=== PATIENT | male | born 1975 | race Caucasian/White ===

== ENCOUNTER → 2017-09-20 10:11 | Outpatient (CLI) | payer BC, SELFPAY | PROVIDERS: Visit Provider Nurse Practitioner Family | DX: Z02.4 Encounter for examination for driving license (principal) ==

== ENCOUNTER 2019-09-14 19:33 | Emergency (ER) | payer BC, SELFPAY ==
[2019-09-14 19:47] VITALS: BP 121/84; PULSE 72; RESP 20; TEMP 36.8; O2SAT 97; BMI 27.8
--- NOTE | 2019-09-14 20:01 | HMH.EDUTC ---
[facility] [place] Clinical Impression: Cutaneous abscess of face Disposition: Home, Self-Care Condition on Discharge: Good Instructions: Boil Additional Instructions: Keep the affected area clean and dry. Follow up with your regular doctor. Take the antibiotics as directed and apply the topical antibiotics as directed. Apply warm wet compresses to the affected area three or four times per day. GO TO THE ER FOR ANY WORSENING SYMPTOMS Prescriptions: Sulfamethoxazole/Trimethoprim [Bactrim DS tablet] 1 each PO BID 10 Days #20 tab Transmission Status: Received by [facility] #[id number] Mupirocin [Bactroban 2% Ointment 22gm tube] 1 applicatio TP TID 7 Days #1 tube Transmission Status: Received by [facility] #[id number] cephALEXin [Keflex 500mg Cap] 500 mg PO Q6H 10 Days #40 cap Transmission Status: Received by [facility] #[id number] Referrals: PCP,No [Primary Care Provider] - Time of Disposition: 20:06 Medical Decision Making - Medical Records Medical records reviewed: No: I reviewed the patient's medical records. - Bulmaro Inquiry Pt receiving controlled substance: No Vital Signs: 09/14/19 19:47 09/14/19 20:09 Temperature 98.3 F 98.3 F Temperature Source Oral Pulse Rate 72 Pulse Rate [Right Brachial] 72 Respiratory Rate 20 20 Blood Pressure 121/84 Blood Pressure [Left Arm] 121/84 Blood Pressure Mean [Left Arm] 96 Blood Pressure Source [Left Arm] Automatic Cuff Blood Pressure Position [Left Arm] Sitting 02 Sat by Pulse Oximetry 97 Oxygen Delivery Method Room Air Orders (Tests/Meds): ED MEDICATIONS Discontinued Medications Generic Name Dose Route Start Last Admin Trade Name Sergioq PRN Reason Stop Dose Admin Ceftriaxone Sodium 1 gm 09/14/19 20:07 09/14/19 20:08 Rocephin 1gm Vial IM 09/14/19 20:08 1 gm ONCE ONE Administration Protocol Lidocaine HCl 0 ml 09/14/19 20:07 09/14/19 20:08 Lidocaine 1% 10ml Mdv IM 09/14/19 20:08 2.1 ml ONCE ONE Administration [facility] [place] - General Stated complaint: Sore on nose Time Seen by Provider: 09/14/19 20:01 Mode of Arrival: Ambulatory Source of Information: Patient Limitations: No Limitations Description of Symptoms (Recalled from Triage Doc. by RN): PATIENT C/O REDNESS, SWELLING AND TENDER TO OUTTER NOSE X 3 DAYS. HE STATES THE SWELLING GETS WORSE AT NIGHT AND GOES DOWN DURING THE DAY. HE REPORTS YESTERDAY THE SWELLING HAD SPREAD TO HIS EYE AREA, BUT WAS BETTER TODAY. DENIES ANY DIFFICULTY BREATHING HEENT Symptoms (Recalled from RN notes): Yes Resp Symptoms (Recalled from RN notes): No Skin Symptoms (Recalled from RN notes): No MS Symptoms (Recalled from RN notes): No Functional Status (Recalled from RN notes): WNL - History of Present Illness Provider Complaint: He c/o redness, pain and swelling of his nose and left facial cheek area. - Related Data Previous Rx's Medication Instructions Recorded Mupirocin [Bactroban 2% Ointment 1 applicatio TP TID 7 Days #1 tube 09/14/19 22gm tube] Sulfamethoxazole/Trimethoprim 1 each PO BID 10 Days #20 tab 09/14/19 [Bactrim DS tablet] cephALEXin [Keflex 500mg Cap] 500 mg PO Q6H 10 Days #40 cap 09/14/19 Allergies Allergy/AdvReac Type Severity Reaction Status Date / Time bacitracin [From Polysporin] Allergy Verified 09/25/18 14:13 polymyxin B [From Polysporin] Allergy Verified 09/25/18 14:13 - Worker's Comp Is this a Worker's Comp case?: No H History - Hepatitis A Screen Drug use history?: No High risk sexual behaviors?: No History of sexually transmitted infection?: No Currently employed?: No Childcare worker?: No Do you have indoor plumbing?: Yes Do you have electricity?: Yes Attestation statement:: This patient has been screened for Hepatitis A risk factors. I have reviewed the patient's past medical history: Yes Other Surgeries: Yes: No Previous Surgery - Social History Smoking Status: Form
[2019-09-14 20:09] VITALS: BP 121/84; PULSE 72; RESP 20; TEMP 36.8; O2SAT 97
== END 2019-09-14 20:12 | disposition home or self-care (01) ==
PROVIDERS: Emergency Provider Nurse Practitioner Family
DX: L02.01 Cutaneous abscess of face (principal); Z87.891 Personal history of nicotine dependence; Z88.8 Allergy status to other drugs, medicaments and biological substances
CPT/HCPCS: 96372; 99201

== ENCOUNTER → 2022-03-21 10:02 | Outpatient (CLI) | payer BC, SELFPAY ==
--- NOTE | 2022-03-21 | ECG_ITS ---
APPROVED REPORT Exam: Resting ECG HR:66 bpm ECG Measurements Heart Rate 66 AXES NV 136 P 50 QRSd 97 QRS 94 QT 367 T -7 QTc 381 Conclusion SINUS RHYTHM WITH SINUS ARRHYTHMIA BORDERLINE RIGHT AXIS DEVIATION [QRS AXIS > 90] OTHERWISE NORMAL EKG Electronically signed by : Ulisses Myers MD 03/21/2022 13:42:48
== END ==
PROVIDERS: PCP Internal Medicine; Visit Provider Internal Medicine
DX: R07.9 Chest pain, unspecified (principal)
CPT/HCPCS: 93005

== ENCOUNTER → 2022-03-28 13:49 | Outpatient (CLI) | payer BC, SELFPAY ==
--- NOTE | 2022-03-28 | CA_ITS ---
APPROVED REPORT Exam: Exercise Treadmill Technologist: Jil Carrero Ht: 6 ft 0 in Wt: 206 lbs BSA: 2.16 m2 HR: 60 bpm BP: 129/88 mmHg Indications: Chest pain Stress Test Details Test: Mckenna HR Resting HR: 68 bpm Max Heart Rate (APMHR): 174.031031 bpm Max HR Achieved: 182 bpm Target HR (85% APMHR): 147.374652 bpm % of APMHR: 104.60 Recovery HR: 113 bpm BP Resting BP: 129.0/88.0 mmHg Max BP: 160.0/82.0 mmHg Recovery BP: 156.0/92.0 mmHg ECG Resting ECG: Normal sinus rhythm, inferior T wave inversion and lateral ST scooping. Clinical Reason for Termination: Fatigue Dyspnea Exercise duration: 09:00 min Highest Stage Achieved: Exercise capacity: 10.1 METs Stress ECG Conclusion Non-diagnostic test. Patient exercised on a mckenna protocol for 9 minutes to peak heart rate 182 bpm (target heart rate 148 bpm) without chest pain. Baseline EKG shows normal sinus rhythm with inferior T wave inversion and lateral ST segment depression/scooping that precludes diagnostic interpretation. Rare PVC and atrial runs/couplets noted. Total METS 10.1 with peak blood pressure 160/82 mmHg. No imaging ordered. Test Summary REST . . . . . . . Sitting REST . . . . . . . Standing REST 03:28 0.0 0.0 68 . 129/ 88 . . Stage 1 01:00 10.0 1.7 106 . . . . Stage 1 02:00 10.0 1.7 115 . . . . Stage 1 03:00 10.0 1.7 117 . 144/ 76 . . Stage 2 01:00 12.0 2.5 136 . . . . Stage 2 02:00 12.0 2.5 150 . . . . Stage 2 03:00 12.0 2.5 158 . 148/ 80 . . Stage 3 01:00 14.0 3.4 170 . . . . Stage 3 02:00 14.0 3.4 176 . . . . Stage 3 03:00 14.0 3.4 181 . 160/ 82 . Stop exercise at 09:00 RECOVERY 01:00 0.0 0.0 162 . . . . RECOVERY 02:00 0.0 0.0 139 . . . . RECOVERY 03:00 0.0 0.0 122 . . . . RECOVERY 04:00 0.0 0.0 115 . . . . RECOVERY 05:00 0.0 0.0 112 . . . . RECOVERY 06:00 0.0 0.0 109 . 156/ 92 . . RECOVERY 06:33 0.0 0.0 112 . 156/ 92 . . Electronically signed by : Ulisses Myers MD 03/30/2022 17:09:56
== END ==
PROVIDERS: PCP Internal Medicine; Visit Provider Internal Medicine
DX: R07.9 Chest pain, unspecified (principal)
CPT/HCPCS: 93017

== ENCOUNTER → 2022-04-18 10:35 | Outpatient (CLI) | payer BC, SELFPAY ==
[2022-04-18 11:15] LABS: Basophils # 0.1 K/mm3 (0-0.2); Basophils % 0.6 % (0.1-2.0); Eosinophils # 0.1 K/mm3 (0.0-0.4); Eosinophils % 1.1 % (0.1-12.0); Hematocrit 44.4 % (42.0-52.0); Hemoglobin 14.7 g/dL (14.1-18.0); Lymphocytes % 20.3 % (10-50); Mean Corpuscular HGB Conc 33.1 g/dL (31.8-35.4); Mean Corpuscular Hemoglobin 30.6 pg (27.0-31.2); Mean Corpuscular Volume 92.5 fl (80-94); Mean Platelet Volume 7.8 fl (7.4-10.4); Monocytes # 0.5 K/mm3 (0.1-1.0); Monocytes % 4.9 % (1.7-9.3); Platelet Count 225 K/mm3 (142-424); Red Cell Distribution Width 12.9 % (11.5-17.5); White Blood Count 9.6 K/mm3 (4.8-10.8)
[2022-04-18 11:47] LABS: Alanine Aminotransferase 18 U/L (12-78); Albumin Level 4.4 g/dl (3.5-5.0); Albumin/Globulin Ratio 1.8 (1.1-1.8); Alkaline Phosphatase 67 U/L (38-126); Anion Gap 4.4 mEq/L (5-15); Aspartate Amino Transferase 27 U/L (17-59); Bilirubin,Total 0.6 mg/dl (0.2-1.3); Blood Urea Nitrogen 12 mg/dl (9-20); Calcium 9.2 mg/dl (8.4-10.2); Carbon Dioxide 31 mmol/L (22.0-30.0); Chloride 108 mmol/L (98-107); Chol/HDL Ratio 4.8 (1-3.5); Cholesterol 198 mg/dl (140-200); Estimated Glomerular Filt Rate 91 ml/min (>60); GFR (African American) 110 ML/MIN (>60); Globulin 2.5 g/dL (1.3-3.2); Glucose 94 mg/dl (74-100); HDL Cholesterol 41 mg/dl (40-60); Potassium 4.4 mmoL/L (3.5-5.1); Sodium 139 mmol/L (136-145); Total Protein,Serum 6.9 g/dl (6.3-8.2); Triglycerides 69 mg/dl (30-150); VLDL Cholesterol 14 mg/dL (0-40)
[2022-04-18 11:58] LABS: Direct LDL Cholesterol 129.69 mg/dL (100-129)
== END ==
PROVIDERS: PCP Internal Medicine; Visit Provider Internal Medicine
DX: R07.9 Chest pain, unspecified (principal); R94.39 Abnormal result of other cardiovascular function study; K21.9 Gastro-esophageal reflux disease without esophagitis
CPT/HCPCS: 36415; 80053; 80061; 85025

== ENCOUNTER → 2022-04-20 12:04 | Outpatient (CLI) | payer BC, SELFPAY ==
--- NOTE | 2022-04-20 | CA_ITS ---
APPROVED REPORT Exam: Exercise Treadmill Technologist: Marely Wooten, Ht: 6 ft 0 in Wt: 215 lbs BSA: 2.20 m2 HR: 63 bpm BP: 119/87 mmHg Stress Test Details Test: Benjamin HR Resting HR: 64 bpm Max Heart Rate (APMHR): 174.962117 bpm Max HR Achieved: 174 bpm Target HR (85% APMHR): 147.629265 bpm % of APMHR: 100.00 Recovery HR: 104 bpm BP Resting BP: 124.0/83.0 mmHg Max BP: 167.0/92.0 mmHg Recovery BP: 146.0/88.0 mmHg ECG Resting ECG: NSR, NSSTTRS abnormalities Inf. LAT Clinical Reason for Termination: Dyspnea Exercise duration: 10:00 min Highest Stage Achieved: Exercise capacity: 12.8 METs Stress ECG Conclusion 10 mins Max HR: 174 % of PM: 118 METs: 12.8 Test stopped due to: Dyspnea Symptoms: No CP Arrhythmias/Ectopy: none ST-T Changes: Baseline STT abnormalities exacerbated during stress. Conclusion: Abnormal, Non diagnostic EKG due to baseline abnormalities. Good exercise tolerance. Test Summary REST . . . . . . . Sitting REST . . . . . . . Standing REST 08:31 0.0 1.2 64 . 124/ 83 . . Stage 1 01:00 10.0 1.7 97 . . . . Stage 1 02:00 10.0 1.7 101 . . . . Stage 1 03:00 10.0 1.7 105 . 122/ 78 . . Stage 2 01:00 12.0 2.5 119 . . . . Stage 2 02:00 12.0 2.5 128 . . . . Stage 2 03:00 12.0 2.5 136 . 150/ 84 . . Stage 3 01:00 14.0 3.4 149 . . . . Stage 3 02:00 14.0 3.4 159 . . . . Stage 3 03:00 14.0 3.4 166 . 160/ 82 . . Stage 4 01:00 16.0 4.2 174 . . . Stop exercise at 10:00 RECOVERY 01:00 0.0 0.0 152 . . . . RECOVERY 02:00 0.0 0.0 115 . . . . RECOVERY 03:00 0.0 0.0 102 . 167/ 92 . . RECOVERY 04:00 0.0 0.0 101 . 167/ 92 . . RECOVERY 04:55 0.0 0.0 103 . 146/ 88 . . Electronically signed by : Barry Freeman MD 04/20/2022 18:30:02
--- NOTE | 2022-04-20 12:15 | NM_ITS ---
APPROVED REPORT Exam: Nuclear Stress Test Indication: Chest pain, SOB, Family history Patient Location: Outpatient Stress Tech: Marely Raphael [place] Tech:Viry Arreola, ARRT, RT (R)(N) Ht: 6 ft 0 in Wt: 215 lbs HR: 64 bpm BP: 124/83 mmHg BSA: 2.20 m2 TID: 1.11 History: Chest pain, SOB, Family history Procedure: Patient exercised on Benjamin protocol 10:00 minutes and sec, resting heart rate 64 bpm, resting blood pressure 124/83 mmHg, with exercise maximum heart rate achived was 174 bpm which is 100 % of the maximum predicted heart rate and blood pressure was 167/92 mmHg. Test was stopped due to SOB. Patient denied any complaint of chest pain. Patient has Good exercise capacity, achieved 12.8 METs of workload on treadmill, the blood pressure response to exercise was Adequate. Electrocardiogram Resting electrocardiogram shows sinus rhythm nonspecific ST-T changes, with exercise there is less than 1.[address] segment depression noted from the baseline EKG. The EKG portion of the exercise Myoview is nondiagnostic due to baseline abnormal EKG. Cardiac Stress and Resting SPECT Images: Cardiac Stress and Resting SPECT images were obtained using technetium 99m Myoview 32.2 mCi stress and 9.95 mCi at rest. Gated SPECT analysis of segmental wall motion and calculation of the ejection fraction also done. Prone images were also obtained. Cardiac prone images show uniform myocardial activity without segmental perfusion abnormality, computer derived ejection fraction 50% with no regional wall motion abnormality, right ventricle is normal size and contractility. Conclusion: 1. The EKG portion of the exercise Myoview is nondiagnostic due to baseline abnormal EKG, patient has good exercise capacity achieved 12.8 METs of workload on treadmill, the blood pressure response to exercise was adequate, there was no exercise-induced chest discomfort. 2. No scintigraphic evidence of reversible ischemia seen, computer derived ejection fraction is 50% with no regional wall motion abnormality, right ventricle is normal size and contractility. 3. Normal exercise Myoview study. Electronically signed by : Barry Freeman MD 04/20/2022 18:37:39
--- NOTE | 2022-04-20 13:44 | HMH.ITSHM ---
Current Home Medications as stated by this patient Job García or [employer]eleservices representative. [][facility] [facility]
== END ==
PROVIDERS: PCP Internal Medicine; Visit Provider Internal Medicine
DX: R07.9 Chest pain, unspecified (principal); I25.5 Ischemic cardiomyopathy; R06.09 Other forms of dyspnea; Z82.49 Family history of ischemic heart disease and other diseases of the circulatory system
CPT/HCPCS: 78452; 93017; A9502

== ENCOUNTER 2022-05-29 12:42 | Emergency (ER) | payer BC, SELFPAY ==
[2022-05-29 12:55] VITALS: BP 126/94; PULSE 65; RESP 22; TEMP 37.4; O2SAT 96; BMI 30.1
[2022-05-29 13:38] LABS: UTC Strep Screen (Rapid) Negative (Negative)
--- NOTE | 2022-05-29 13:43 | EXP.UTC ---
Discharge Plan Disposition Patient Disposition: Home, Self-Care Condition: Good Prescriptions Prescriptions: New azithromycin [Zithromax Z-Fabio] 250 mg tablet See Rx Instructions .ROUTE .COMPLEX 5 Days Qty: 6 0RF Rx Instructions: For 250 mg dose pack: take 500 mg today (day 1), then 250 mg for 4 days (days 2-5) benzonatate 100 mg capsule 100 mg PO TID PRN (Reason: cough) Qty: 30 0RF methylprednisolone [Medrol (Fabio)] 4 mg tablets,dose pack See Rx Instructions .Route .COMPLEX 6 Days Qty: 21 0RF Rx Instructions: taper pack; No Action omeprazole 20 mg capsule,delayed release(DR/EC) 20 mg PO DAILY Label Comments: TAKE 1 CAPSULE BY MOUTH IN THE MORNING FOR GERD Referrals Follow up/Referrals: Ulisses Myers MD [Primary Care Provider] - See instructions Activity Restrictions/Add. Instructions Additional Instructions/Restrictions: *Monitor Temp, Over the counter Motrin or Tylenol as directed/as needed Tylenol every 4 hours and Motrin every 6 hours (as long as your family doctor has told you that you can take it) for fever or pain. and straight to ER if unable to lower temp less than 101.0 after medication given *Warm salt water gargles may help to soothe the throat *Throat Lozenges? *Warm fluids like tea with honey may help to soothe the throat? *Sleep elevated *Humidifier/Vaporizer Your throat swab was sent for culture. Those results are typically sent to your primary care. Be sure to follow up in 2-3 days with your family doctor/primary care physician if no improvement so they can review those result and treat if necessary. If you don?t have a primary care doctor, I recommend you get one but in the mean time, you will have to return to a walk in clinic Follow up IMMEDIATELY for new or worsening symptoms or no Noticeable improvement over the next 48-72 hours. 911 for difficulty breathing or swallowing Clinical Impressions Clinical Impression: Sinusitis Instructions Patient Instructions: DI for Sinusitis, Sinusitis, Sore Throat Discharge ED Provider: Karon Do [facility] General Stated complaint: sore throat, cough, bilateral ear pain, sinus pres Mode of Arrival: Ambulatory Source of Information: Patient Limitations: No Limitations Time Seen by Provider: 05/29/22 13:43 Description of Symptoms (Recalled from Triage Doc. by RN): PATIENT C/O COUGH, SORE THROAT, CONGESTION AND FATIGUE SINCE MONDAY HEENT Symptoms (Recalled from RN notes): Yes Resp Symptoms (Recalled from RN notes): Yes Skin Symptoms (Recalled from RN notes): No MS Symptoms (Recalled from RN notes): No Functional Status (Recalled from RN notes): WNL History of Present Illness Provider Complaint: Patient states he has been having sinus pain and pressure, sore throat, drainage in the back of his throat, cough and congestion States that today the pressure was worse and his throat felt more scratchy so he came in Related Data Home Medications Medication Instructions Recorded Confirmed omeprazole 20 mg capsule,delayed 20 mg PO DAILY GERD 05/29/22 05/29/22 release Previous Rx's Medication Instructions Recorded azithromycin 250 mg tablet See Rx Instructions PO .COMPLEX 5 05/29/22 (Zithromax Z-Fabio) days #6 tabs benzonatate 100 mg capsule 100 mg PO TID PRN cough #30 caps 05/29/22 methylprednisolone 4 mg tablets in See Rx Instructions .Route 05/29/22 a dose pack (Medrol (Fabio)) .COMPLEX 6 days #21 tabs Allergies Allergy/AdvReac Type Severity Reaction Status Date / Time bacitracin [From Polysporin] Allergy Verified 09/29/20 13:59 polymyxin B [From Polysporin] Allergy Verified 09/29/20 13:59 Worker's Comp Is this a Worker's Comp case?: No [facility] Disclaimer: The information contained in this section may have been updated after the patient was seen, as this information can be updated by other users. Social History Smoking Status: Former smoker alcohol intake
[2022-05-29 13:52] VITALS: BP 126/94; PULSE 65; RESP 22; TEMP 37.4; O2SAT 96
== END 2022-05-29 13:55 | disposition home or self-care (01) ==
PROVIDERS: Emergency Provider Nurse Practitioner; PCP Internal Medicine
DX: J01.90 Acute sinusitis, unspecified (principal); R05.1 Acute cough
CPT/HCPCS: 87880; 99212; 99214; G0463

== ENCOUNTER 2023-04-11 11:54 | Outpatient (POV) | payer BC, SELFPAY | END 2023-04-11 23:59 | disposition home or self-care (01) | LOC: SC 11:55 | PROVIDERS: PCP Internal Medicine; Visit Provider Dermatology | DX: Z00.00 Encounter for general adult medical examination without abnormal findings (principal) ==

== ENCOUNTER 2023-04-25 09:31 | Day surgery (SDC) | payer BC, SELFPAY ==
[2023-04-21 09:38] VITALS: BMI 29.1
[2023-04-25] MEDS: LACTATED RINGERS 1000ML 1,000 ML 25 ML IV (09:41)
[2023-04-25 09:43] VITALS: BP 125/88; PULSE 68; RESP 18; TEMP 36.1; O2SAT 95
--- NOTE | 2023-04-25 09:49 | P.PCN_ITS ---
Procedure: Date: 04/25/23 Patient Date of :: 1975 Procedure Performed:: Colonoscopy Indications:: Screening Performing Provider:: Pedrito Rodriguez MD Referring Provider:: . Sedation:: Monitored anesthesia care Procedure:: After informed consent was obtained the patient was taken to the endoscopy suite. Sedation ensued after the patient was transferred to the left lateral decubitus position. Pulse, blood pressure, and oxygen saturation were monitored throughout the procedure. Digital rectal exam revealed no significant abnormality. The colonoscope was placed in position. The entire colon was eval uated. The colonoscope was carefully removed and the patient was transferred to recovery in stable condition. Please see findings and specimens below for detail. Findings:: Bowel preparation fair Moderate tortuosity Moderate spasticity/lack of relaxation Hemorrhoidal cushions Specimens:: None Recommendations:: Repeat colonoscopy in 3-5 years secondary to tortuosity and spasticity/lack of relaxation. If repeat colonoscopy reveals no abnormality, timing of future colonoscopies will likely be extended. Complications:: No immediate Estimated blood obtained (mL): 0 Colonoscopy Component Colonoscopy Component Was a colonoscopy performed during today's procedure?: Yes Recommended follow up colonoscopy of at least 10 years?: No If no, follow up colonoscopy recommended in ___ years?: (See above) Reason for not recommending >/= 10 yr follow-up interval?: (See above)
--- NOTE | 2023-04-25 09:51 | EXP.ANES.CKL ---
[facility] Disclaimer: The information contained in this section may have been updated after the patient was seen, as this information can be updated by other users. Medical History No significant past medical history Family History Other No significant family history Social History Smoking Status: Former smoker alcohol intake: current substance use type: denies use current occupational status: employed and other Travel in the last 8 weeks: Inside the [place] household members: family housing: house [facility] Anesthesia Checklist Patient Identification Patient Identification: Arm Band and Verbal (Name & ) Structural Data Admitted From: Home Planned Operative Procedure/s: Colonoscopy Consent for Planned Operative Procedure(s) Verified: Yes NPO Status Verified Time NPO: 00:00 Airway Assessment Mallampati Score:: Class II C-Spine Mobility Assessed: Yes TMJ Mobility Assessed: Yes Dentition: Good Dentition Neurological Assessment Level of Consciousness: Awake Hx Seizures: No Numbness or tingling in extremities: No Anesthesia Plan Anesthesia Risk discussed: Yes Anesthesia Plan: Verified ASA Class: I Anesthesia Type: MAC
[2023-04-25 09:55] VITALS: O2SAT 94
[2023-04-25 10:20] VITALS: BP 94/64; PULSE 67; RESP 14; TEMP 36.1; O2SAT 94
--- NOTE | 2023-04-25 10:28 | SUR.PHASEII ---
1020: Pt arrived to postop area. RN and PROPERTIES SUPERVISOR present. Oral airway in place at this time. Pt is maintaining sats on room air.
[2023-04-25 10:30] VITALS: BP 95/64; PULSE 69; RESP 14; O2SAT 93
[2023-04-25 10:40] VITALS: BP 102/67; PULSE 75; RESP 17; O2SAT 96
== END 2023-04-25 10:50 | disposition home or self-care (01) ==
PROVIDERS: PCP Internal Medicine; Visit Provider Surgery
PROC: 0DJD8ZZ Inspection of Lower Intestinal Tract, Via Natural or Artificial Opening Endoscopic (ICD-10-PCS; CPT 45378; principal; 2023-04-25 10:30)
DX: Z12.11 Encounter for screening for malignant neoplasm of colon (principal); K64.8 Other hemorrhoids
CPT/HCPCS: 45378; J2704

== ENCOUNTER 2023-06-20 08:53 | Emergency (ER) | payer BC, SELFPAY ==
[2023-06-20 09:20] VITALS: BP 141/87; PULSE 89; RESP 18; TEMP 37.1; O2SAT 99; BMI 30.4
[2023-06-20 09:27] LABS: UTC Influenza A Antigen Negative (Negative); UTC Influenza B Antigen Negative (Negative); UTC Strep Screen (Rapid) Negative (Negative)
--- NOTE | 2023-06-20 09:35 | EXP.UTC ---
Discharge Plan Disposition Patient Disposition: Home, Self-Care Condition: Good Prescriptions Prescriptions: New azithromycin [Zithromax Z-Fabio] 250 mg tablet See Rx Instructions .ROUTE .COMPLEX 5 Days Qty: 6 0RF Rx Instructions: For 250 mg dose pack: take 500 mg today (day 1), then 250 mg for 4 days (days 2-5) benzonatate 100 mg capsule 100 mg PO TID PRN (Reason: cough) Qty: 30 0RF methylprednisolone [Medrol (Fabio)] 4 mg tablets,dose pack See Rx Instructions .Route .COMPLEX 6 Days Qty: 21 0RF Rx Instructions: taper pack; No Action famotidine 20 mg tablet 20 mg PO DAILY Patient Comments: TAKE 1 TABLET BY MOUTH TWICE DAILY BEFORE MEAL(S) Referrals Follow up/Referrals: Ulisses Myers MD [Primary Care Provider] - See instructions Activity Restrictions/Add. Instructions Additional Instructions/Restrictions: *Monitor Temp, Over the counter Motrin or Tylenol as directed/as needed Tylenol every 4 hours and Motrin every 6 hours (as long as your family doctor has told you that you can take it) for fever or pain. and straight to ER if unable to lower temp less than 101.0 after medication given *Warm salt water gargles may help to soothe the throat *Throat Lozenges? *Warm fluids like tea with honey may help to soothe the throat? *Sleep elevated *Humidifier/Vaporizer *Your throat swab was sent for culture. Those results are typically sent to your primary care. Be sure to follow up in 2-3 days with your family doctor/primary care physician if no improvement so they can review those result and treat if necessary. If you don?t have a primary care doctor, I recommend you get one but in the mean time, you will have to return to a walk in clinic Follow up IMMEDIATELY for new or worsening symptoms or no Noticeable improvement over the next 48-72 hours. 911 for difficulty breathing or swallowing Clinical Impressions Clinical Impression: Pharyngitis Instructions Patient Instructions: Sore Throat, DI for Sinusitis Discharge ED Provider: Karon Do [facility] [place] HPI General Stated complaint: fever, cough, sore throat Mode of Arrival: Ambulatory Source of Information: Patient Limitations: No Limitations Time Seen by Provider: 06/20/23 09:35 Description of Symptoms (Recalled from Triage Doc. by RN): Pt's symptoms are cough, sore throat, congestion, and fever. 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 HEENT Symptoms (Recalled from RN notes): Yes Resp Symptoms (Recalled from RN notes): No Skin Symptoms (Recalled from RN notes): No MS Symptoms (Recalled from RN notes): No Functional Status (Recalled from RN notes): n/a History of Present Illness Provider Complaint: Patient states that he has been having sore throat, sinus congestion and pressure, fever, and over all not feeling well since last week States that his cough is getting worse but not coughing anything up so today when he was still not feeling any better he came in Related Data Home Medications Medication Instructions Recorded Confirmed famotidine 20 mg tablet 20 mg PO DAILY 04/25/23 04/25/23 Previous Rx's Medication Instructions Recorded azithromycin 250 mg tablet See Rx Instructions PO .COMPLEX 5 06/20/23 (Zithromax Z-Fabio) days #6 tabs benzonatate 100 mg capsule 100 mg PO TID PRN cough #30 caps 06/20/23 methylprednisolone 4 mg tablets in See Rx Instructions .Route 06/20/23 a dose pack (Medrol (Fabio)) .COMPLEX 6 days #21 tabs Allergies Allergy/AdvReac Type Severity Reaction Status Date / Time bacitracin [From Polysporin] Allergy Verified 06/20/23 09:30 polymyxin B [From Polysporin] Allergy Verified 06/20/23 09:30 Worker's Comp Is this a Worker's Comp case?: No [facility] Disclaimer: The information contained in this section may have been updated after the patient was seen, as this information can be updated by other users. Medical History No significant past medical history Family History Other No significant family history Social History Smoking Status: Former smoker alcohol intake: current substance use type: denies use current occupational status: employed and other Travel in the last 8 weeks: [place] the [place] household members: family housing: house ROS Obtained: Yes All systems reviewed & no additional complaints except as documented and Yes Systems reviewed as appropriate & no additional complaints except as documented Constitutional Constitutional: Reports system reviewed and no additional complaints, except as documented, Reports as per HPI, Reports fever(s) and Reports headache(s) ENT Ears, Nose, Mouth, and Throat: Reports system reviewed and no additional complaints, except as documented, Reports as per HPI, Reports headache(s), Reports sinus pain, Reports sinus pressure and Reports sore throat Cardiovascular Cardiovascular: Reports system reviewed and no additional complaints, except as documented and Reports as per HPI Respiratory Respiratory: Reports system reviewed and no additional complaints, except as documented, Reports as per HPI, Denies shortness of breath and Reports cough Neurologic Neurologic: Reports headache(s) Physical Exam General General appearance: alert and in no apparent distress ENT ENT exam: Present mucous membranes moist Expanded ENT Exam Nose exam: Present sinus tenderness Throat exam: Present other (Pharyngeal erythema noted with PND) Respiratory Respiratory exam: Present normal lung sounds bilaterally; Absent respiratory distress or wheezes Cardiovascular Cardiovascular exam: Present regular rate, normal rhythm and normal heart sounds Neurological Exam Neurological exam: Present alert, oriented X3 and normal gait Medical Decision Making Bulmaro Inquiry Pt receiving controlled substance: No Bulmaro was queried for this patient: No Vital Signs: 06/20/23 09:20 Temperature 98.7 F Temperature Source Oral Pulse Rate [Right Radial] 89 Respiratory Rate 18 Blood Pressure [Right Arm] 141/87 H Blood Pressure Mean [Right Arm] 105 Blood Pressure Source [Right Arm] Automatic Cuff Blood Pressure Position [Right Arm] Sitting 02 Sat by Pulse Oximetry 99 Oxygen Delivery Method Room Air Lab Data Lab results reviewed: Yes I reviewed the patient's lab results. Lab Results 06/20/23 09:26: Influenza Type A Ag Negative, Influenza Type B Ag Negative, Strep Scn Rapid Clinic Negative Orders (Tests/Meds): ORDERS Category Date Time Status Strep Screen Confirmation Stat Micro 06/20/23 09:26 Received
[2023-06-20 09:50] VITALS: BP 141/87; PULSE 89; RESP 18; TEMP 37.1; O2SAT 99
== END 2023-06-20 09:55 | disposition home or self-care (01) ==
PROVIDERS: Emergency Provider Nurse Practitioner; PCP Internal Medicine
DX: J02.9 Acute pharyngitis, unspecified (principal); R50.9 Fever, unspecified; R05.9 Cough, unspecified; R09.81 Nasal congestion
CPT/HCPCS: 87804; 87880; 99212; 99214; G0463

== ENCOUNTER 2025-01-27 09:33 | Outpatient (CLI) | payer BC, SELFPAY ==
--- NOTE | 2025-01-27 09:35 | XR_ITS ---
FINAL REPORT CLINICAL HISTORY: chest congestion x 3 weeks COMPARISON: None FINDINGS: PA and lateral views of the chest are obtained. There is no prior exam for comparison. The cardiac and mediastinal silhouettes are within normal limits. Mild bronchial wall thickening is present, slightly asymmetric to the left, possibly secondary to bronchitis. No confluent infiltrates are identified. There is no pleural effusion, pneumothorax, or acute osseous abnormality. IMPRESSION: Mild bronchial wall thickening, slightly more prominent on the left, possibly secondary to bronchitis. Reviewed, Interpreted and Dictated by Amara Poon MD Transcribed by July West Authenticated and . [facility]
--- OUTSIDE RECORDS SUMMARY | 2025-01-27 09:36 | XMS_ITS | Patient Health Record ---
Author Organization [facility] Address [address] [facility] [address] [place] [id number] Care Team Providers Care Switch Inspector Name Role Phone Enzo Whitlock Unavailable [phone] Allergies Allergen (clinical drug ingredient) Drug/Non Drug Allergy documented on EMR Reaction Allergy Type Onset Date Status Polysporin Unknown Drug Allergy Active Results Component Value Reference Range Notes Urinalysis - Inhouse Reviewed date:09/26/2024 08:07:29 AM Interpretation: Performing Lab: Notes/Report: Color/Clarity Yellow/Clear Leuk Neg Nitrite Neg Urobili 3.2 Protein Neg pH 6.0 Blood Neg Sp. Gr. 1.020 Ketone Neg Bili Neg Gluc Neg Reason For Referral No Information Medications Medication SIG (Take, Route, Fr equency, Duration) Notes Start Date End Date Status Omeprazole 20 MG 1 capsule 1/2 to 1 h our before morning meal Orally Once a day A ctive Immunizations Vaccine Route Administration Date Status Comme nts COVID 19 Moderna Unknown 03/19/2020 Administered COVID 19 Moderna Unknown 04/17/2020 Administered Tetanus Tdap-Adacel (over 7yrs) Unknown 11/13/2007 Admi nistered Vital Signs Heart Rate 69 /min 09/25/2024 Blood pressure diastolic 74 mm Hg 09/25/2024 Height 72 in 09/25/2024 Blood pressure systolic 112 mm Hg 09/25/2024 Weight 215 lbs 09/25/2024 BMI 29.16 kg/m2 09/25/2024 Encounters Encounter Location Date Provider Diagnosis [facility] [address] [place] Lem[place] [id number] 09/25/2024 Enzomargaret Whitlock Encounter for Depart ment of Transportation (DOT) examination for [place] license Z02.4 Assessments Encounter Date Diagnosis (ICD Code) Assessment Notes Treatment Notes Treatment Clinical Notes Section Notes 09/25/2024 Encounter for Department of Transportation (DOT) examination for [place] license (ICD-10 - Z02.4) Plan Of Treatment No Information Medical (General) History Surgical History Surgery Date(Month/Year)
== END 2025-01-27 23:59 ==
LOC: RAD 09:34
PROVIDERS: PCP Internal Medicine; Visit Provider Nurse Practitioner
DX: R09.89 Other specified symptoms and signs involving the circulatory and respiratory systems (principal); R91.8 Other nonspecific abnormal finding of lung field
CPT/HCPCS: 71046